=== PATIENT | male | born 2000 | race Caucasian/White ===

== ENCOUNTER 2021-01-07 20:56 | Emergency (ER) | payer OTHER ==
[~2021-01-07] VITALS: Ht 172.7 cm; Wt 65.8 kg
[2021-01-08] MEDS ORDERED: MUCINEX D ER 11 EACH PO (02:24)
[2021-01-08] MEDS ORDERED: COLCHICINE0.6 MG PO (02:24)
[2021-01-08] MEDS ORDERED: IVERMECTIN3 MG PO (02:24)
[2021-01-08] MEDS ORDERED: AZITHROMYCIN500 MG PO (02:24)
[2021-01-08] MEDS ORDERED: MELATONIN10 M2 PO (02:24)
[2021-01-08] MEDS ORDERED: ACETAMINOPHEN650 M2 PO (02:24)
== END 2021-01-08 02:37 | disposition home or self-care (01) ==
LOC: ER 20:56
DX: U07.1 COVID-19 (principal); J02.9 Acute pharyngitis, unspecified; J32.8 Other chronic sinusitis; R50.9 Fever, unspecified

== ENCOUNTER 2021-07-31 13:42 | Outpatient (CLI) | payer OTHER ==
[~2021-07-31 13:42] MED LIST: ACETAMINOPHEN650 M2 PO; AZITHROMYCIN500 MG PO; COLCHICINE0.6 MG PO; IVERMECTIN3 MG PO; MELATONIN10 M2 PO; MUCINEX D ER 11 EACH PO
== END 2021-07-31 13:49 | disposition home or self-care (01) ==
LOC: SONOGRAMA 13:42
PROVIDERS: ATTEND Family Medicine
DX: M75.01 Adhesive capsulitis of right shoulder (principal)

== ENCOUNTER 2022-03-12 07:49 | Outpatient (CLI) | payer OTHER | END 2022-03-12 08:00 | disposition home or self-care (01) | LOC: SONOGRAMA 07:49 | PROVIDERS: ATTEND Family Medicine | DX: G56.00 Carpal tunnel syndrome, unspecified upper limb (principal) ==